=== PATIENT | male | born 1980 | race Caucasian/White ===

== ENCOUNTER 2016-06-27 13:20 | Emergency (ER) | payer MEDICARE ==
[~2016-06-27] VITALS: Ht 177.8 cm; Wt 93.4 kg
== END 2016-06-27 14:35 | disposition home or self-care (01) ==
LOC: ER 13:20
DX: K64.4 Residual hemorrhoidal skin tags (principal); I10 Essential (primary) hypertension; G40.909 Epilepsy, unspecified, not intractable, without status epilepticus; Z79.899 Other long term (current) drug therapy
CPT/HCPCS: 99282; 99283

== ENCOUNTER 2016-08-01 09:30 | Emergency (ER) | payer MEDICARE | END 2016-08-01 09:45 | disposition home or self-care (01) | LOC: ER 09:30 | DX: L53.9 Erythematous condition, unspecified (principal); I10 Essential (primary) hypertension; F32.9 Major depressive disorder, single episode, unspecified; Z79.899 Other long term (current) drug therapy | CPT/HCPCS: 99282; 99284 ==